=== PATIENT | female | born 1980 | race Hispanic/Latino ===

== ENCOUNTER 2023-10-29 14:23 | Emergency (ER) | payer BC ==
[~2023-10-29] VITALS: Ht 165.1 cm; Wt 88.6 kg
[2023-10-29] MEDS ORDERED: CEPHALEXIN500 MG PO (15:16)
[2023-10-29] MEDS ORDERED: PREDNISONE 20 MG TAB ONE (16:18)
[2023-10-29] MEDS ORDERED: PREDNISONE 20 MG TAB PO ONE (16:30)
[2023-10-29] MEDS ORDERED: PREDNISONE50 MG PO (16:34)
[2023-10-29 16:35] VITALS: O2SAT 100
== END 2023-10-29 16:45 | disposition home or self-care (01) ==
LOC: FSED 14:29
DX: M54.50 Low back pain, unspecified (principal); M51.16 Intervertebral disc disorders with radiculopathy, lumbar region
CPT/HCPCS: 99283; J7512